=== PATIENT | male | born 1945 | race Caucasian/White ===

== ENCOUNTER → 2016-07-25 | Outpatient (CLI) | payer MEDICARE ==
--- NOTE | 2016-07-25 10:27 | XR ---
EXAMINATION TYPE: XR KUB DATE OF EXAM: 07/25/2016 10:14 AM COMPARISON: 01/09/2014 HISTORY: Follow-up lithotripsy FINDINGS: The bowel gas pattern is nonspecific. Lung bases are clear. Stable vascular appearing calcifications within the pelvis. No suspicious calcifications seen. Arthropathy of the hips and degenerative change of the spine. IMPRESSION: 1. Nonspecific abdomen. No suspicious calcifications identified.
== END | disposition home or self-care (01) ==
LOC: RADXRMAIN 09:47
PROVIDERS: ATTEND Urology
DX: N20.0 Calculus of kidney (principal)
CPT/HCPCS: 74000

== ENCOUNTER → 2016-07-30 | Outpatient (CLI) | payer MEDICARE ==
--- NOTE | 2016-07-30 17:04 | CT ---
EXAMINATION TYPE: CT abdomen pelvis wo con DATE OF EXAM: 07/30/2016 2:51 PM COMPARISON: NONE INDICATION: Pt states of left lower abdominal pain. Possible stone. DLP: 694.7 mGycm, Automated exposure control for dose reduction was used. CONTRAST: None Study performed without Oral Contrast TECHNIQUE: Axial images were obtained from above the diaphragm to the pubic rami in the axial plane a t 5 mm thick sections. Reconstructed images are reviewed on the computer in the coronal plane. FINDINGS: Limited CT sections are obtained the lung bases. The lung bases are clear. Coronary artery calcific ations present. CT ABDOMEN: Liver: Normal Spleen: Normal Pancreas: Normal Adrenal glands: The adrenal glands are normal. Gallbladder: Normal Kidneys: No masses are evident. No hydronephrosis is present. No cysts are present. Aorta: Normal Inferior vena cava: Normal. CT PELVIS: Loops of bowel within the abdomen and pelvis are normal. Study is performed without oral contrast limiting evaluation loops of bowel. Note is made of diverticular changes within the sigmoid colon. Appendix: Normal as visualized. Urinary bladder: Normal. Genitourinary structures: Prostate is unremarkable Osseous structures: No suspicious lytic or sclerotic lesions. Facet degenerative changes are within t he lumbar spine. Degenerative disc changes are present L5-S1. Hemangioma is likely present T12 level. IMPRESSIONS: 1. Diverticulosis without acute diverticulitis sigmoid colon.
== END | disposition home or self-care (01) ==
LOC: RADCTMAIN 14:27
PROVIDERS: ATTEND Urology
DX: K57.30 Diverticulosis of large intestine without perforation or abscess without bleeding (principal)
CPT/HCPCS: 74176

== ENCOUNTER 2017-06-22 12:06 | Day surgery (SDC) | payer MEDICARE ==
[2017-06-18 14:39] VITALS: BMI 34.0
[~2017-06-22 12:06] MED LIST: DEXAMETHASONE SOD PHOSPHATE 10 MG/ML 1 ML VIAL IV ONE; HYDROmorphone 0.5 MG/0.5 ML SYRINGE IVP PRN; LACTATED RINGERS 1,000 ML IV SCH; LIDOCAINE 1% 20 ML VIAL (10MG/ML) FOR IV START INTRADERMA PRN; MIDAZOLAM 2 MG/2 ML VIAL IV PRN; ONDANSETRON 4 MG/2 ML VIAL IVP ONE; SCOPOLAMINE 1.5MG/72HR PATCH TRANSDERM ONE; ceFAZolin IN SWFI 2 GM/20 ML SYRINGE IVP ONE
[2017-06-22 12:54] VITALS: RESP 18; TEMP 97.5
[2017-06-22] MEDS ORDERED: KETAMINE 10 MG/ML 20 ML VIAL ONE (14:22)
[2017-06-22] MEDS ORDERED: MIDAZOLAM 2 MG/2 ML VIAL ONE (14:22)
[2017-06-22] MEDS ORDERED: PROPOFOL 10 MG/ML 20 ML VIAL IV ONE (14:22)
[2017-06-22] MEDS ORDERED: LIDOCAINE 1% INJ 10MG/ML (20 ML MDV) ONE (14:22)
[2017-06-22] MEDS ORDERED: BUPIVACAINE (PF) 0.5% 30 ML VIAL SQ ONE (14:37)
[2017-06-22] MEDS ORDERED: LIDOCAINE 1% (PF) 10MG/ML VIAL SQ ONE (14:37)
[2017-06-22] MEDS ORDERED: ceFAZolin 1,000 MG in SODIUM CHLORIDE 0.9% 1,000 ML IRRIGATION ONE (15:07)
[2017-06-22 15:43] VITALS: PULSE 85
[2017-06-22 16:00] VITALS: BP 141/82
--- NOTE | 2017-08-19 22:49 | OP ---
OPERATIVE REPORT DATE OF PROCEDURE: 06/22/2017 PREOPERATIVE DIAGNOSIS: Degenerative osteoarthritis, MP joint right middle finger. FINAL DIAGNOSIS: Degenerative osteoarthritis, MP joint right middle finger. PROCEDURES: MP joint silastic arthroplasty, right middle finger. PROCEDURE DESCRIPTION: This 71-year-old man was taken to the operative suite, given IV sedation. I anesthetized the line of my incision with a combination of Xylocaine and Marcaine, both without epinephrine. His hand was prepped and draped in the usual manner. His arm was then elevated and exsanguinated and cuff was inflated to 250 mmHg. Transverse incision was made over the dorsal MP joint of the right middle finger. Dissection was taken down through the skin, protecting the longitudinal vessels in the troughs on either side. The extensor mechanism was identified and incised along the ulnar aspect. This dorsal extensor rodgers incision was then extended distally, resulting in an ulnar intrinsic release. The extensor rodgers was then retracted radially, exposing the dorsal capsule. The dorsal capsule was incised longitudinally, exposing the joint. Partial collateral ligament release was performed sharply and the metacarpal neck head area was exposed. Hohmann retractors were used to protect the soft tissue and an oscillating saw was then used to remove the metacarpal head. This only resulted in partial collateral ligament release. An awl was then used to establish the intramedullary canal in both the proximal phalanx and the metacarpal. A Medeiros bur was then used to increase the intramedullary canal openings. Further clearing of the joint with a small rongeur was used. The wound was continuously irrigated throughout the procedure with sterile saline. Subsequently, larger rasps were then used both in the proximal phalanx and in the metacarpal until appropriate size was determined. A trial implant was used and noted to fit appropriately. The prosthesis was then inserted using no-touch technique. The dorsal capsule was closed with 3-0 PDS suture. The extensor mechanism was then allowed to fall into place and it sat naturally in a stable position. The wound was again thoroughly irrigated. Tourniquet was released. Hemostasis was acquired with pressure and electrocautery. The skin was closed with 5-0 nylon suture. A soft bulky dressing was applied, protecting the middle finger in stable position. The patient was taken to the recovery room in satisfactory condition. MMODL / IJN: [id number] /
== END 2017-06-22 16:30 | disposition home or self-care (01) ==
LOC: OR 12:06
PROVIDERS: ATTEND Orthopaedic Surgery Hand Surgery
DX: M19.041 Primary osteoarthritis, right hand (principal); I10 Essential (primary) hypertension; J45.909 Unspecified asthma, uncomplicated; K21.9 Gastro-esophageal reflux disease without esophagitis; Z88.5 Allergy status to narcotic agent; Z88.8 Allergy status to other drugs, medicaments and biological substances; Z79.82 Long term (current) use of aspirin; Z79.51 Long term (current) use of inhaled steroids; Z79.899 Other long term (current) drug therapy; Z82.49 Family history of ischemic heart disease and other diseases of the circulatory system
CPT/HCPCS: 26536; C1713; J2250; J1100; J0690 ×2; J2405; J2001 ×2; J2704